=== PATIENT | male | born 1985 | race Asian ===

== ENCOUNTER 2018-03-31 07:39 | Emergency (ER) | payer OTHER ==
[~2018-03-31] VITALS: Ht 170.2 cm; Wt 90.9 kg
[2018-03-31] MEDS ORDERED: FLUORESCEIN SODIUM 1 MG STRIP OU ONE (09:15)
[2018-03-31] MEDS ORDERED: PROPARACAINE HCL 0.5% 15 ML OPHTHALMIC SOLUTION OU ONE (09:15)
[2018-03-31 09:20] VITALS: BP 129/101
[2018-03-31] MEDS ORDERED: TRIAMCINOLONE 0.1% 15 GM CREAM TP ONE (09:30)
[2018-03-31] MEDS ORDERED: HYDROCORTISONE 2.5% 30 GM CREAM TP ONE (09:30)
[2018-03-31] MEDS ORDERED: MINERAL OIL/PETROLATUM 120 GM CREAM TP ONE (09:30)
[2018-03-31] MEDS ORDERED: PredniSONE 20 MG TABLET PO ONE (09:30)
== END 2018-03-31 10:10 | disposition home or self-care (01) ==
LOC: EEVIPCON 07:39 → EMS 07:44
DX: L30.9 Dermatitis, unspecified (principal); R03.0 Elevated blood-pressure reading, without diagnosis of hypertension
CPT/HCPCS: 99284; J7512

== ENCOUNTER 2022-02-06 16:29 | Emergency (ER) | payer OTHER ==
[~2022-02-06] VITALS: Ht 170.2 cm; Wt 92.0 kg
[2022-02-06] MEDS ORDERED: PRED-554 PO (16:58)
[2022-02-06] MEDS ORDERED: MethylPREDNISolone SOD SUCC 125 MG/2 ML VIAL IM ONE (17:00)
[2022-02-06 17:26] VITALS: BP 126/82
== END 2022-02-06 17:53 | disposition home or self-care (01) ==
LOC: EMS 16:29
DX: L30.9 Dermatitis, unspecified (principal)
CPT/HCPCS: 99283; 96372; J2930